=== PATIENT | female | born 1945 | race Caucasian/White ===

== ENCOUNTER 2018-09-15 09:28 | Outpatient (CLI) | payer MEDICARE, OTHER, SELFPAY ==
--- NOTE | 2018-09-15 06:00 | DI.RAD_ITS ---
SYMPTOM/DIAGNOSIS: SI JOINT DYSFUNCTION, SI JOINT INJECTION C-ARM: Fluoroscopy Time: 16.3 seconds Fluoroscopy was utilized by Dr. Carroll during the performance of a right sacroiliac joint injection. Please refer to the procedure report for complete details.
[2018-09-15 09:39] VITALS: PULSE 50; RESP 20; TEMP 36.8; O2SAT 97
--- NOTE | 2018-09-15 10:41 | PDOC.PAIN_ITS ---
Pain Clinic Procedure Note Current Active Problems Problem Status Onset Sacroiliac joint dysfunction of right side Acute 07/15/17 INTRA-ARTICULAR SI JOINT INJECTION NEHA PARISI has been referred to the [facility] for intra- articular SI joint injection. COMMENTS: She has had this procedure twice in the past (12/17/17 and 07/15/17) with excellent results. DX: Sacroiliac joint dysfunction Patient was interviewed and the medical record reviewed. There were no medical, pharmacologic, radiographic or other structural contraindications to attempting fluoroscopically guided intra-articular SI joint injection. Risks and expected side effects as well as potential benefit of the procedure were reviewed and voiced concerns addressed. The printed consent form was signed and witnessed. Standard time-out procedure was performed. Patient was placed in the prone position on the fluoroscopy table and automated blood pressure cuff and pulse oximeter applied. The skin entry point for approaching right SI joints was identified under the most advantageous fluoroscopic view and marked. Following thorough Chlorhexadine preparation of the skin and draping and 1% lidocaine infiltration of the skin entry point and subcutaneous tissues, a 22 gauge spinal needle was placed under fluoroscopic guidance into right SI joints was identified under the most advantageous fluoroscopic view and marked. Following thorough Chlorhexadine preparation of the skin and draping and 1% lidocaine infiltration of the skin entry point and subcutaneous tissues, a 22 gauge spinal needle was placed under fluoroscopic guidance into right SI joint. Intra-articular placement was confirmed by a clear arthrogram resulting from the injection of 0.25ml Omnipaque 240, 1ml 1% lidocaine, and 80mg Depomedrol were injected intra-articularily with an initial reproduction of a significant component of the usual pain. Vital signs were stable throughout the procedure and were as recorded in the docflowsheet by the nursing staff. If given, dosages of intravenous drugs for anxiolysis and analgesia were documented in MAR. Follow up plans and appointments were discussed with the patient. Post procedure instruction was given as documented in nursing documentation and having met discharge criteria, and was discharged from the [facility]. COMMENTS: This procedure can be completed up to 3 times per 12 months if it is found to be effective. CC: Candace Calix
[2018-09-15] MEDS: Omnipaque 240 MG/ML 50 ML BTL IJ (10:44)
[2018-09-15] MEDS: methylPREDNISolone ACETATE 80 MG/ML VIAL IJ (10:44)
[2018-09-15 10:45] VITALS: BP 166/75; PULSE 53; RESP 16; O2SAT 99
== END 2018-09-15 09:48 ==
PROVIDERS: PCP Family Medicine; Visit Provider Preventive Medicine Occupational Medicine
DX: M53.3 Sacrococcygeal disorders, not elsewhere classified (principal); M54.5 Low back pain
CPT/HCPCS: 27096; 72200; J1040; Q9967

== ENCOUNTER 2019-01-12 10:15 | Outpatient (CLI) | payer MEDICARE, OTHER, SELFPAY ==
--- NOTE | 2019-01-12 06:00 | DI.RAD_ITS ---
SYMPTOM/DIAGNOSIS: SACROILIAC JOINT DYSFUNCTION C-ARM: Fluoroscopy Time: 16.5 seconds Fluoroscopy was utilized by Dr Carroll during the performance of a sacroiliac joint injection. Please refer to the procedure report for complete details.
[2019-01-12 10:25] VITALS: BP 149/60; PULSE 52; RESP 20; TEMP 37.1; O2SAT 100
--- NOTE | 2019-01-12 10:56 | PDOC.PAIN_ITS ---
Pain Clinic Procedure Note Current Active Problems Problem Status Onset Sacroiliac joint dysfunction of right side Chronic INTRA-ARTICULAR SI JOINT INJECTION NEHA PARISI has been referred to the [facility] for intra- articular SI joint injection. COMMENTS: Excellent results with this injection in the past. VAS 8/10 prior to the procedure. Patient was interviewed and the medical record reviewed. There were no medical, pharmacologic, radiographic or other structural contraindications to attempting fluoroscopically guided intra-articular SI joint injection. Risks and expected side effects as well as potential benefit of the procedure were reviewed and voiced concerns addressed. The printed consent form was signed and witnessed. Standard time-out procedure was performed. Patient was placed in the prone position on the fluoroscopy table and automated blood pressure cuff and pulse oximeter applied. The skin entry point for approaching right SI joint was identified under the most advantageous fluoroscopic view and marked. Following thorough Chlorhexadine preparation of the skin and draping and 1% lidocaine infiltration of the skin entry point and subcutaneous tissues, a 22 gauge spinal needle was placed under fluoroscopic guidance into right SI joint was identified under the most advantageous fluoroscopic view and marked. Following thorough Chlorhexadine preparation of the skin and draping and 1% lidocaine infiltration of the skin entry point and subcutaneous tissues, a 22 gauge spinal needle was placed under fluoroscopic guidance into the right SI joint. Intra-articular placement was confirmed by a clear arthrogram resulting from the injection of 0.25ml Omnipaque 240, 1ml 1% lidocaine, and 40mg Depomedrol were injected intra-articularily with an initial reproduction of a significant component of the usual pain. Vital signs were stable throughout the procedure and were as recorded in the docflowsheet by the nursing staff. If given, dosages of intravenous drugs for anxiolysis and analgesia were documented in MAR. Follow up plans and appointments were discussed with the patient. Post procedure instruction was given as documented in nursing documentation and having met discharge criteria, and was discharged from the [facility]. COMMENTS: VAS 0/10 after the procedure. This procedure can be completed up to 3 times per 12 months. CC: Candace Calix
[2019-01-12 11:04] VITALS: BP 163/75; PULSE 55; RESP 22; O2SAT 100
[2019-01-12] MEDS: Omnipaque 240 MG/ML 50 ML BTL IJ (11:05)
[2019-01-12] MEDS: methylPREDNISolone ACETATE 80 MG/ML VIAL IJ (11:05)
== END 2019-01-12 10:35 ==
PROVIDERS: PCP Family Medicine; Visit Provider Preventive Medicine Occupational Medicine
DX: M53.3 Sacrococcygeal disorders, not elsewhere classified (principal)
CPT/HCPCS: 27096; 72200; J1040; Q9967